=== PATIENT | female | born 1950 | race Caucasian/White ===

== ENCOUNTER → 2017-06-19 | Outpatient (CLI) | payer MEDICAID ==
[~2017-06-19] MED LIST: EFFEXOR75 MG PO
== END | disposition home or self-care (01) ==
LOC: CDC 11:01
DX: Z01.810 Encounter for preprocedural cardiovascular examination (principal)
CPT/HCPCS: 93000

== ENCOUNTER 2017-06-25 06:32 | Day surgery (SDC) | payer MEDICAID ==
[~2017-06-25] VITALS: Ht 160 cm; Wt 68.9 kg
[2017-06-25 07:04] VITALS: BP 120/59
[2017-06-25 10:15] VITALS: BP 147/70
[2017-06-25 10:39] VITALS: BP 136/72
== END 2017-06-25 10:49 | disposition home or self-care (01) ==
LOC: SDC 06:32
PROC: 0UDB8ZX Extraction of Endometrium, Via Natural or Artificial Opening Endoscopic, Diagnostic (ICD-10-PCS; principal; 2017-06-25)
DX: N95.0 Postmenopausal bleeding (principal); N81.12 Cystocele, lateral
CPT/HCPCS: 88305; J0690; J1100; J2250; J2405; J3010